=== PATIENT | female | born 1945 | race Caucasian/White ===

== ENCOUNTER 2022-04-16 12:13 | Inpatient (IN) | payer MEDICARE, BC ==
[2022-04-16 13:36] LABS: #Eosinphils 0.1 thou/uL (0.0-0.7); #Lymphocytes 1.5 thou/uL (1.20-3.40); #Monocytes 0.4 thou/uL (0.11-0.59); #Neutrophils 4.3 thou/uL (1.40-6.50); %Basophils 0.6 % (0.0-1.0); %Eosinophils 1.2 % (0.0-10.0); %Lymphocytes 23.7 % (21.0-51.0); %Monocytes 6.9 % (0.0-10.0); %Neutrophils 67.7 % (42.0-75.0); Hemoglobin 9.8 g/dL (12.0-16.0); Mean Corpuscular HGB CONC 31.7 g/dL (32.0-36.0); Mean Corpuscular Hemoglobin 28.8 pg (27.0-31.0); Mean Corpuscular Volume 90.7 fL (78.0-98.0); Mean Platelet Volume 8.5 fL (7.4-10.4); Platelet Count 94 thou/uL (130-400); RBC Distribution Width 14.5 % (11.5-14.5); Red Blood Cell (RBC) Count 3.39 mill/uL (4.20-5.40); White Blood Cell (WBC) Count 6.3 thou/uL (4.8-10.8)
[2022-04-16 14:00] LABS: MDiff Complete? YES; Platelet Morphology Comment Appears Decreased; Polychromasia SLIGHT = 2-3 cells (100X) (0-2/hpf)
[2022-04-16 14:05] LABS: ALT (SGPT) 32 U/L (8-55); AST (SGOT) 24 U/L (5-34); Albumin 3.5 g/dL (3.4-4.8); Alkaline Phosphatase 111 U/L (40-110); Anion Gap 14 mmol/L (10-20); BUN (Urea Nitrogen) 27 mg/dL (9.8-20.1); Bilirubin, Total 0.2 mg/dL (0.2-1.2); Calc. Creatinine Clearance 0 mL/min (70-130); Calcium 9.6 mg/dL (7.8-10.44); Carbon Dioxide 29 mmol/L (23-31); Chloride 103 mmol/L (98-107); Estimated GFR 33; Globulin 2.9 g/dL (2.4-3.5); Glucose 97 mg/dL (83-110); Magnesium 1.7 mg/dL (1.6-2.6); Potassium 3.8 mmol/L (3.5-5.1); Protein, Total 6.4 g/dL (5.8-8.1); Sodium 142 mmol/L (136-145)
[2022-04-16 14:52] LABS: #Eosinphils 0.1 thou/uL (0.0-0.7); #Lymphocytes 1.5 thou/uL (1.20-3.40); #Monocytes 0.6 thou/uL (0.11-0.59); #Neutrophils 4.8 thou/uL (1.40-6.50); %Basophils 0.2 % (0.0-1.0); %Eosinophils 1.1 % (0.0-10.0); %Lymphocytes 22.2 % (21.0-51.0); %Neutrophils 68.5 % (42.0-75.0); Hemoglobin 9.9 g/dL (12.0-16.0); Mean Corpuscular HGB CONC 32.8 g/dL (32.0-36.0); Mean Corpuscular Hemoglobin 29.6 pg (27.0-31.0); Mean Corpuscular Volume 90.4 fL (78.0-98.0); Mean Platelet Volume 9.2 fL (7.4-10.4); Platelet Count 83 thou/uL (130-400); RBC Distribution Width 14.4 % (11.5-14.5); Red Blood Cell (RBC) Count 3.35 mill/uL (4.20-5.40); White Blood Cell (WBC) Count 6.9 thou/uL (4.8-10.8)
[2022-04-16 15:25] LABS: Bacteria/HPF 4+ HPF (None Seen); Bilirubin Negative (Negative); Blood, Urine Negative (Negative); Clarity Turbid (Clear); Glucose, Urine (Dipstick) Normal (Negative); Ketone, Urine Negative (Negative); Leukocyte 500 Leu/uL (Negative); Nitrite 2+ (Negative); Protein, Urine (Dipstick) 20 mg/dL (Neg-Trace); RBC/HPF 0-3 HPF (0-3); Specific Gravity, Urine 1.012 (1.002-1.036); Squamous Epithelial 0-3 HPF (0-3); Urobilinogen Normal mg/dL (Less than 2); WBC/HPF 21-50 HPF (0-3); pH, Urine 5.5 (5.0-9.0)
[2022-04-16] MEDS ORDERED: cefTRIAXone\\ROCEPHIN 2 GM VIAL ONE (15:42)
[2022-04-16 16:24] LABS: SARS-CoV-2 NAA Rapid Test Not Detected (NotDetected)
[2022-04-16] MEDS ORDERED: diphenhydrAMINE 50 MG/ML VIAL IVP SCH (19:00)
[2022-04-16] MEDS ORDERED: Ondansetron PF 4 MG/2 ML Vial IVP PRN (19:51)
[2022-04-16] MEDS ORDERED: Dextrose 5% in Water 1,000 ML IV PRN (19:51)
[2022-04-16] MEDS ORDERED: Dextrose 50% Abboject 50 ML SYRINGE SLOW IVP PRN (19:51)
[2022-04-16] MEDS ORDERED: Melatonin 3 MG TAB PO PRN (19:55)
[2022-04-16] MEDS: Sodium Chloride 0.9% 1,000 ML IV SCH (21:20)
[2022-04-16] MEDS ORDERED: Enoxaparin Sodium 40 MG/0.4 ML SYRINGE SC SCH (22:00)
[2022-04-17 00:19] VITALS: BMI 37.3
[2022-04-17 05:46] LABS: #Lymphocytes 1.5 thou/uL (1.20-3.40); #Monocytes 0.7 thou/uL (0.11-0.59); #Neutrophils 7.3 thou/uL (1.40-6.50); %Basophils 0.2 % (0.0-1.0); %Eosinophils 0.4 % (0.0-10.0); %Lymphocytes 15.5 % (21.0-51.0); %Monocytes 7.1 % (0.0-10.0); %Neutrophils 76.8 % (42.0-75.0); Hemoglobin 10.3 g/dL (12.0-16.0); Mean Corpuscular HGB CONC 31.7 g/dL (32.0-36.0); Mean Corpuscular Hemoglobin 29.2 pg (27.0-31.0); Mean Corpuscular Volume 92.2 fL (78.0-98.0); Platelet Count 93 thou/uL (130-400); RBC Distribution Width 14.3 % (11.5-14.5); Red Blood Cell (RBC) Count 3.54 mill/uL (4.20-5.40); White Blood Cell (WBC) Count 9.5 thou/uL (4.8-10.8)
[2022-04-17 06:08] LABS: ALT (SGPT) 36 U/L (8-55); AST (SGOT) 26 U/L (5-34); Albumin 3.5 g/dL (3.4-4.8); Alkaline Phosphatase 111 U/L (40-110); Anion Gap 13 mmol/L (10-20); BUN (Urea Nitrogen) 27 mg/dL (9.8-20.1); Bilirubin, Total 0.2 mg/dL (0.2-1.2); Calc. Creatinine Clearance 40 mL/min (70-130); Calcium 9.5 mg/dL (7.8-10.44); Carbon Dioxide 28 mmol/L (23-31); Chloride 106 mmol/L (98-107); Estimated GFR 28; Globulin 2.8 g/dL (2.4-3.5); Glucose 90 mg/dL (83-110); Potassium 4.1 mmol/L (3.5-5.1); Protein, Total 6.3 g/dL (5.8-8.1); Sodium 143 mmol/L (136-145)
[2022-04-17] MEDS: Pantoprazole 40 MG VIAL IVP SCH (08:26)
[2022-04-17] MEDS ORDERED: Enoxaparin Sodium 40 MG/0.4 ML SYRINGE SC SCH (09:00)
[2022-04-17] MEDS: cefTRIAXone\\ROCEPHIN 1 GM in Sodium Chloride 0.9% 100 ML IVPB SCH (15:25)
[2022-04-17] MEDS: Sodium Chloride 0.9% 1,000 ML IV SCH (15:25)
[2022-04-17 16:11] LABS: Creatinine, Urine 25.26 mg/dL (47-110)
[2022-04-17] MEDS ORDERED: hydrOXYzine Pamoate 25 mg Capsule PO SCH (16:15)
[2022-04-18 05:45] LABS: Anion Gap 15 mmol/L (10-20); BUN (Urea Nitrogen) 26 mg/dL (9.8-20.1); Calc. Creatinine Clearance 41 mL/min (70-130); Calcium 9.5 mg/dL (7.8-10.44); Carbon Dioxide 27 mmol/L (23-31); Chloride 107 mmol/L (98-107); Estimated GFR 28; Glucose 79 mg/dL (83-110); Sodium 145 mmol/L (136-145)
[2022-04-18] MEDS: Pantoprazole 40 MG VIAL IVP SCH (08:29)
[2022-04-18] MEDS: hydrOXYzine Pamoate 25 mg Capsule PO SCH ×2 (08:32→19:47)
[2022-04-18] MEDS: Enoxaparin Sodium 30 MG/0.3 ML SYRINGE SC SCH (08:35)
[2022-04-18] MEDS ORDERED: Bisacodyl 10 MG SUPP PR SCH (09:00)
[2022-04-18] MEDS ORDERED: Polyethylene Glycol 3350 17 GM Packet PO SCH (10:15)
[2022-04-18] MEDS: Sodium Chloride 0.9% 1,000 ML IV SCH (11:24)
[2022-04-18 15:03] LABS: Hemoglobin A1c 5.2 % (4.0-6.0)
[2022-04-18] MEDS: cefTRIAXone\\ROCEPHIN 1 GM in Sodium Chloride 0.9% 100 ML IVPB SCH (16:25)
[2022-04-18] MEDS: Polyethylene Glycol 3350 17 GM Packet PO SCH (19:47)
[2022-04-19] MEDS ORDERED: Meclizine HCl 25 MG TAB PO PRN (05:44)
[2022-04-19] MEDS ORDERED: Polyvinyl Alcohol 1.4%/Povidone 0.6% Opth Drops EA EYE PRN (05:44)
[2022-04-19 06:08] LABS: Anion Gap 12 mmol/L (10-20); BUN (Urea Nitrogen) 27 mg/dL (9.8-20.1); Calc. Creatinine Clearance 40 mL/min (70-130); Calcium 9.7 mg/dL (7.8-10.44); Carbon Dioxide 29 mmol/L (23-31); Chloride 105 mmol/L (98-107); Estimated GFR 28; Glucose 95 mg/dL (83-110); Potassium 4.2 mmol/L (3.5-5.1); Sodium 142 mmol/L (136-145)
[2022-04-19] MEDS: Levothyroxine Sodium 100 MCG TAB PO SCH (06:21)
[2022-04-19] MEDS: Sodium Chloride 0.9% 1,000 ML IV SCH (07:59)
[2022-04-19] MEDS: Polyethylene Glycol 3350 17 GM Packet PO SCH ×2 (08:00→20:04)
[2022-04-19] MEDS: Enoxaparin Sodium 30 MG/0.3 ML SYRINGE SC SCH (08:00)
[2022-04-19] MEDS: Aspirin 81 mg Enteric Coated Tablet PO SCH (08:01)
[2022-04-19] MEDS: hydrOXYzine Pamoate 25 mg Capsule PO SCH ×2 (08:01→20:05)
[2022-04-19] MEDS: Pantoprazole 40 MG VIAL IVP SCH (08:01)
[2022-04-19] MEDS: Amlodipine 5 MG TAB PO SCH (08:01)
[2022-04-19] MEDS ORDERED: Polyethylene Glycol 3350 17 GM Packet PO SCH (09:00)
[2022-04-19] MEDS: cefTRIAXone\\ROCEPHIN 1 GM in Sodium Chloride 0.9% 100 ML IVPB SCH (15:32)
[2022-04-19] MEDS: Atorvastatin Calcium 10 MG TAB PO SCH (20:05)
[2022-04-19 21:20] VITALS: TEMP 97.8
[2022-04-20] MEDS: Levothyroxine Sodium 100 MCG TAB PO SCH (05:03)
[2022-04-20 07:28] LABS: Hemoglobin 9.1 g/dL (12.0-16.0); Mean Corpuscular HGB CONC 31.3 g/dL (32.0-36.0); Mean Corpuscular Hemoglobin 28.8 pg (27.0-31.0); Mean Corpuscular Volume 91.8 fL (78.0-98.0); Mean Platelet Volume 8.9 fL (7.4-10.4); Platelet Count 68 thou/uL (130-400); RBC Distribution Width 14.5 % (11.5-14.5); Red Blood Cell (RBC) Count 3.15 mill/uL (4.20-5.40); White Blood Cell (WBC) Count 6.9 thou/uL (4.8-10.8)
[2022-04-20 07:41] LABS: Albumin 3.2 g/dL (3.4-4.8); Anion Gap 12 mmol/L (10-20); BUN (Urea Nitrogen) 27 mg/dL (9.8-20.1); BUN/Creatinine Ratio 15.52; Calc. Creatinine Clearance 43 mL/min (70-130); Calcium 9.6 mg/dL (7.8-10.44); Carbon Dioxide 30 mmol/L (23-31); Chloride 105 mmol/L (98-107); Estimated GFR 30; Glucose 94 mg/dL (83-110); Phosphorus 4.1 mg/dL (2.3-4.7); Potassium 4.1 mmol/L (3.5-5.1); Sodium 143 mmol/L (136-145)
[2022-04-20] MEDS: Amlodipine 5 MG TAB PO SCH (08:20)
[2022-04-20] MEDS: Polyethylene Glycol 3350 17 GM Packet PO SCH ×2 (08:20→21:10)
[2022-04-20] MEDS: hydrOXYzine Pamoate 25 mg Capsule PO SCH ×2 (08:20→21:05)
[2022-04-20] MEDS: Enoxaparin Sodium 30 MG/0.3 ML SYRINGE SC SCH (08:20)
[2022-04-20] MEDS: Pantoprazole 40 MG VIAL IVP SCH (08:21)
[2022-04-20] MEDS: Aspirin 81 mg Enteric Coated Tablet PO SCH (08:21)
[2022-04-20] MEDS: Albumin 25% 25 GM/100 ML BOT IVPB SCH ×2 (09:03→17:49)
[2022-04-20] MEDS: Acetaminophen 325 MG TAB PO PRN (12:41)
[2022-04-20] MEDS: cefTRIAXone\\ROCEPHIN 1 GM in Sodium Chloride 0.9% 100 ML IVPB SCH (15:51)
[2022-04-20] MEDS: Atorvastatin Calcium 10 MG TAB PO SCH (21:05)
[2022-04-21] MEDS: Acetaminophen 325 MG TAB PO PRN ×2 (05:13→15:20)
[2022-04-21] MEDS: Levothyroxine Sodium 100 MCG TAB PO SCH (05:13)
[2022-04-21 07:32] LABS: Albumin 3.4 g/dL (3.4-4.8); Anion Gap 13 mmol/L (10-20); BUN (Urea Nitrogen) 26 mg/dL (9.8-20.1); BUN/Creatinine Ratio 16.56; Calc. Creatinine Clearance 47 mL/min (70-130); Calcium 9.6 mg/dL (7.8-10.44); Carbon Dioxide 30 mmol/L (23-31); Chloride 105 mmol/L (98-107); Estimated GFR 34; Glucose 109 mg/dL (83-110); Phosphorus 3.9 mg/dL (2.3-4.7); Potassium 3.7 mmol/L (3.5-5.1); Sodium 144 mmol/L (136-145)
[2022-04-21 07:33] LABS: Iron Binding Capacity, Total 283 mcg/dL (265-497)
[2022-04-21 07:34] LABS: Iron 33 ug/dL (50-170)
[2022-04-21 08:05] VITALS: BP 147/79
[2022-04-21] MEDS: hydrOXYzine Pamoate 25 mg Capsule PO SCH (08:11)
[2022-04-21] MEDS: Amlodipine 5 MG TAB PO SCH (08:11)
[2022-04-21] MEDS: Aspirin 81 mg Enteric Coated Tablet PO SCH (08:11)
[2022-04-21] MEDS: Polyethylene Glycol 3350 17 GM Packet PO SCH (08:11)
[2022-04-21] MEDS ORDERED: Iron, Sodium Ferric Gluconate 250 MG in Sodium Chloride 0.9% 250 ML 250 ML IVPB SCH (09:00)
[2022-04-21] MEDS: cefTRIAXone\\ROCEPHIN 1 GM in Sodium Chloride 0.9% 100 ML IVPB SCH (15:26)
== END 2022-04-21 17:35 | DRG 872 ==
LOC: ERS 12:13 → T4-A 15:50
PROVIDERS: ADMIT Family Medicine; ATTEND Internal Medicine
PROC: 3E03329 Introduction of Other Anti-infective into Peripheral Vein, Percutaneous Approach (ICD-10-PCS; principal; 2022-04-16)
PROC: 30233J1 Transfusion of Nonautologous Serum Albumin into Peripheral Vein, Percutaneous Approach (ICD-10-PCS; 2022-04-20)
DX: A41.51 Sepsis due to Escherichia coli [E. coli] (principal); N17.9 Acute kidney failure, unspecified; E87.1 Hypo-osmolality and hyponatremia; N12 Tubulo-interstitial nephritis, not specified as acute or chronic; R65.20 Severe sepsis without septic shock; E03.9 Hypothyroidism, unspecified; E78.5 Hyperlipidemia, unspecified; R68.0 Hypothermia, not associated with low environmental temperature; Z20.822 Contact with and (suspected) exposure to COVID-19; E11.649 Type 2 diabetes mellitus with hypoglycemia without coma; I25.10 Atherosclerotic heart disease of native coronary artery without angina pectoris; E66.9 Obesity, unspecified; D69.6 Thrombocytopenia, unspecified; N18.30 Chronic kidney disease, stage 3 unspecified; D63.1 Anemia in chronic kidney disease; E61.1 Iron deficiency; I12.9 Hypertensive chronic kidney disease with stage 1 through stage 4 chronic kidney disease, or unspecified chronic kidney disease; E11.22 Type 2 diabetes mellitus with diabetic chronic kidney disease; Z68.37 Body mass index [BMI] 37.0-37.9, adult; I25.2 Old myocardial infarction; Z87.891 Personal history of nicotine dependence; Z79.82 Long term (current) use of aspirin; Z79.899 Other long term (current) drug therapy
CPT/HCPCS: 36415; 36416; 51701; 70450; 71045; 71250; 74177; 76770; 80048; 80053; 80069; 81003; 81015; 82040; 82550; 82570; 82728; 83036; 83540; 83550; 83735; 83880; 84300; 84436; 84439; 84443; 84484; 85025; 85027; 87040; 87077; 87086; 87186; 93005; 96365; 96366; C9113; J0696; J1200; J1650; J2916; J3490; J7050; P9047; Q0177

== ENCOUNTER 2022-12-31 12:05 | Day surgery (SDC) | payer MEDICARE, MEDICAID ==
[2022-12-08 08:43] VITALS: BMI 32.5
[2022-12-31 13:42] VITALS: BP 136/50
== END 2022-12-31 15:20 ==
LOC: ULT 12:05 → EDSTATUS 13:00 → ULT 15:20
PROVIDERS: ATTEND Otolaryngology Plastic Surgery within the Head & Neck
DX: K11.8 Other diseases of salivary glands (principal); Z53.20 Procedure and treatment not carried out because of patient's decision for unspecified reasons
CPT/HCPCS: 76536